=== PATIENT | male | born 1945 | race Caucasian/White ===

== ENCOUNTER 2018-12-06 14:58 | Outpatient (CLI) | payer MEDICARE, BC ==
[2018-12-06 15:31] LABS: eGFR (Non-African) 32
== END 2018-12-06 15:00 ==
LOC: LAB 14:58
PROVIDERS: ATTEND Internal Medicine
DX: E11.22 Type 2 diabetes mellitus with diabetic chronic kidney disease (principal); N18.3 Chronic kidney disease, stage 3 (moderate); E78.5 Hyperlipidemia, unspecified
CPT/HCPCS: 36415; 80048; 84100